=== PATIENT | female | born 1970 | race Caucasian/White ===

== ENCOUNTER 2017-12-16 08:09 | Emergency (ER) | payer OTHER, SELFPAY ==
[2017-12-16] MEDS ORDERED: Ibuprofen 800 MG TAB ONE (08:24)
[2017-12-16] MEDS ORDERED: Acetaminophen 500 MG TAB ONE (08:24)
== END 2017-12-16 09:28 | disposition home or self-care (01) ==
LOC: ERS 08:09
DX: H65.91 Unspecified nonsuppurative otitis media, right ear (principal); H65.92 Unspecified nonsuppurative otitis media, left ear; B34.9 Viral infection, unspecified; F32.9 Major depressive disorder, single episode, unspecified; F17.210 Nicotine dependence, cigarettes, uncomplicated
CPT/HCPCS: 99406

== ENCOUNTER 2018-12-07 13:48 | Emergency (ER) | payer MEDICAID, SELFPAY ==
[2018-12-07] MEDS ORDERED: Lidocaine 1% PF 5 ML VIAL ONE (14:18)
[2018-12-07] MEDS ORDERED: cefTRIAXone\\ROCEPHIN 250 MG VIAL ONE (14:18)
[2018-12-07] MEDS ORDERED: Acetaminophen 500 MG TAB ONE (14:18)
[2018-12-07 14:24] LABS: Bilirubin Negative (Negative); Blood, Urine Negative (Negative); Clarity CLEAR (Clear); Glucose, Urine (Dipstick) Negative (Negative); Leukocyte Small (Negative); Nitrite Negative (Negative); Protein, Urine (Dipstick) Negative (Neg-Trace); Specific Gravity, Urine 1.012 (1.002-1.036); pH, Urine 6.5 (5.0-9.0)
[2018-12-07 14:27] LABS: Bacteria/HPF None Seen HPF (None Seen); Hyaline Casts/LPF 0-3 HYALINE CAST LPF (0-3 Hyaline); Pathc Cast-AUWi Flag 0.14 (0-2.49); RBC/HPF 0-3 HPF (0-3)
[2018-12-07] MEDS ORDERED: Azithromycin 250 MG TAB ONE (14:50)
[2018-12-07 15:05] LABS: Pregnancy Test - Urine (BHCG) Negative (Negative); Pregu Control Background? CLEAR/WHITE (CLR/WHITE); Pregu Control Bar Appear? YES (CONTROL BAR); Specific Gravity 1.012 (1.002-1.036)
[2018-12-10 02:04] LABS: Chlamydia by PCR Not Detected (NotDetected); GC by PCR Not Detected (NotDetected)
== END 2018-12-07 15:31 | disposition home or self-care (01) ==
LOC: ERS 13:48
DX: N73.9 Female pelvic inflammatory disease, unspecified (principal); N76.0 Acute vaginitis; B00.9 Herpesviral infection, unspecified; F17.210 Nicotine dependence, cigarettes, uncomplicated
CPT/HCPCS: 81003; 81015; 81025; 87086; 87480; 87491; 87510; 87591; 87660; J0696; J2001

== ENCOUNTER 2018-12-07 20:05 | Inpatient (IN) | payer MEDICAID ==
[2018-12-07 20:47] LABS: #Lymphocytes 0.8 thou/uL (1.20-3.40); #Monocytes 0.3 thou/uL (0.11-0.59); #Neutrophils 6.6 thou/uL (1.40-6.50); %Basophils 0.1 % (0.0-1.0); %Eosinophils 0.2 % (0.0-10.0); %Monocytes 4.2 % (0.0-10.0); %Neutrophils 85.5 % (42.0-75.0); Hemoglobin 13.1 g/dL (12.0-16.0); Mean Corpuscular HGB CONC 33.8 g/dL (32.0-36.0); Mean Corpuscular Hemoglobin 32.8 pg (27.0-31.0); Mean Corpuscular Volume 97.1 fL (78.0-98.0); Mean Platelet Volume 7.7 fL (7.4-10.4); Platelet Count 335 thou/uL (130-400); RBC Distribution Width 11.2 % (11.5-14.5); White Blood Cell (WBC) Count 7.7 thou/uL (4.8-10.8)
[2018-12-07] MEDS ORDERED: cefTRIAXone\\ROCEPHIN 2 GM VIAL ONE (20:50)
[2018-12-07] MEDS ORDERED: Acetaminophen 500 MG TAB ONE (20:50)
[2018-12-07 21:07] LABS: ALT (SGPT) 60 U/L (8-55); AST (SGOT) 57 U/L (5-34); Alkaline Phosphatase 153 U/L (40-150); Anion Gap 15 mmol/L (10-20); BUN (Urea Nitrogen) 13 mg/dL (7.0-18.7); Bilirubin, Total 0.4 mg/dL (0.2-1.2); Calc. Creatinine Clearance 0 mL/min (70-130); Calcium 9.2 mg/dL (7.8-10.44); Carbon Dioxide 22 mmol/L (22-29); Chloride 104 mmol/L (98-107); Estimated GFR-MDRD 82; Globulin 2.5 g/dL (2.4-3.5); Glucose 125 mg/dL (70-105); Potassium 4.2 mmol/L (3.5-5.1); Protein, Total 6.5 g/dL (6.0-8.3); Sodium 137 mmol/L (136-145)
[2018-12-07] MEDS ORDERED: Morphine 4 MG/ML VIAL ONE (21:20)
--- NOTE | 2018-12-07 21:27 | CT ---
CT ABDOMEN AND PELVIS WITHOUT CONTRAST: HISTORY: Lower back pain. Bilateral CVA tenderness. FINDINGS: Absence of oral and IV contrast reduces the sensitivity of the exam, particularly for evaluation of s olid organs involved. The lung bases are clear. No free air or free fluid is seen in the abdomen or pelvis. No calcified gallstones are noted. There are vascular calcifications without evidence of aneurysmal dilatation of the abdominal aorta. A uterus is present. There are left-sided small parapelvic cysts. No calculi are seen in the kidneys, ureters, or urinary bladder. No hydroureteronephrosis is noted on either side. A normal appearing appendix is noted. There is a vertebral hemangioma at T11. IMPRESSION: No CT evidence of urinary tract calculi or obstruction. POS: [facility]
--- NOTE | 2018-12-07 21:59 | PDOC.EVN ---
Event Note - Event Note Event Note: OBGYN Attending oncall note ELEVATOR SERVICE TECHNICIAN HISTORY AND PHYSICAL ELEVATOR SERVICE TECHNICIAN Consult; Requested by Lary Morel (ED provider) Called by ED provider just now ([id number]) HPI: I just just called regarding Ms Julien, from the ED provider. This patient- a 48 yo , s/p BTL, with LMP 7mos ago (UCG negative) was seen earlier today in ED and given a DX of "PID" and cleared for outpatient management. I was not contacted at that time. She was released from the ED earlier but she returned with "fever at home" after she arrived at her residence. She returned to the ED with initial temp of 103 but now 99.0 after IVF hydration. The ED provider has DX'd BV on VP3 and suspected genital herpetic lesion on the left labia. Review of Systems: complete ROS completed and as per HPI Past surg HX: BTL; HX cryo and leep over 20 years ago OB HX: x 3 Allergies: none PMed: none Social: social drinker, smokes tobacco Vice President Of Procurement HX: LMP 7 mos ago, HX HSV with apparent recent outbreak (recurrent), Last sex without condom 2-3 weeks ago PHYSICAL: Last vitals: 99.0, pulse 96, 106/53 Patient seen by me at bedside NAD Abd soft, nt Labs: UA with likely contamination GC/CHL pending under earlier Jnumber: [id number] Influenza neg WBC normal at 7 CT of abd/pelvis without acute pathology Assessment and plan: FUO, heddle machine operator source not likely: I have reviewed the patient's first ED visit as well as this one. I was called for possible PID. However, PID less likely in non-menstruating perimenopausal patient. Patient also with BTL HX, making PID possible...but less probable. I would recommend admit for FUO by medicine. She received Rocephin and ZMax earlier. To cover heddle machine operator etiology, I would recommend Rocephin/doxy and flagyl for inpatient. I have ordered per the ED team: 1. HSV PCR of genital (left) lesion 2. GC/CHL from earlier visit to join to this visit 3. Requested heddle machine operator sono (to look for tubal inflammation/hydro and TOA (although CT was negative) and RUQ sono (due to LFTs) 4. Requested hepatitis panel duo to borderline LFTs 5. Urine culture 6. Consider HIV testing and RPR for screen 7. Vice President Of Procurement will be happy to follow I was present when the transabdomnal heddle machine operator sono was performed in the ED...small fundal fibroid noted, overies wnl, no evidence hydrosalpinx. Vaginal portion of sono pening. RUQ pending.
[2018-12-07 22:37] LABS: Amphetamine Not Detected (NotDetected); Barbiturates Screen Not Detected (NotDetected); Benzodiazepine Screen Not Detected (NotDetected); Cocaine Metabolite Screen Not Detected (NotDetected); Medtox Control Line Valid? VALID (VALID); Medtox Reader # READER 1; Methadone Not Detected (NotDetected); Methamphetamine Not Detected (NotDetected); Opiate Screen Not Detected (NotDetected); Oxycodone Screen Not Detected (NotDetected); Phencyclidine (PCP) Not Detected (NotDetected); THC/Cannabinoid Screen Not Detected (NotDetected); Tricyclic Screen Not Detected (NotDetected)
--- NOTE | 2018-12-07 22:50 | PDOC.EVN ---
Event Note - Event Note Event Note: Patient declines herpes swab...no PCR
[2018-12-07] MEDS ORDERED: Ondansetron ODT 4 MG TAB PO PRN (22:54)
[2018-12-07] MEDS ORDERED: Acetaminophen 325 MG TAB PO PRN (22:54)
--- NOTE | 2018-12-07 23:05 | ULT ---
TRANSABDOMINAL AND TRANSVAGINAL PELVIC ULTRASOUND WITH DOPPLER: HISTORY: Pelvic pain. Fever. TECHNIQUE: Cash-scale, color-flow, and spectral Doppler. FINDINGS: The uterus measures 10.8 x 4.5 x 5.8 cm with a probable fibroid of the fundus measuring 2.2 x 2.5 x 2 .7 cm. No endometrial fluid is seen. The endometrium measures 4 mm in thickness. The right ovary measures 1.6 x 1.1 x 2.5 cm, and the left ovary measures 2.3 x 1 x 1.6 cm. Flow is d emonstrated to both ovaries. No adnexal mass or free fluid in the cul-de-sac is seen. IMPRESSION: Probable uterine fibroid. POS: [facility]
[2018-12-07] MEDS: Doxycycline 100 MG CAP PO SCH (23:15)
--- NOTE | 2018-12-07 23:31 | ULT ---
RIGHT UPPER QUADRANT ULTRASOUND: HISTORY: Right flank pain and right upper quadrant pain. FINDINGS: There is a 1.8 cm hyperechoic focus in the right lobe of the liver, consistent with the hemangioma no elaine on the CT scan of 04/10/2016. No gallstones, gallbladder wall thickening, or pericholecystic flu id is seen. There is a questionable 5 mm polyp arising from the wall of the gallbladder. No gallbla dder wall thickening or pericholecystic fluid is seen. The common duct measures 3 mm in diameter. T he right kidney and the visualized portions of the pancreas are unremarkable. No free fluid is seen in the Weiss pouch. IMPRESSION: 1. Probable 5 mm gallbladder polyp. 2. Liver hemangioma. POS: [facility]
[2018-12-07 23:38] VITALS: BMI 28.0
[2018-12-07] MEDS: Sodium Chloride 0.9% 1,000 ML IV SCH (23:45)
[2018-12-08 00:04] LABS: HIV (1/2) Antibody/Antigen Non-Reactive (NonReactive); HIV 1/2 INDEX 0.12 S/CO (<1.00)
[2018-12-08 00:07] LABS: HBCM Index 0.05 S/CO (0-0.79); HBSAg Index 0.23 S/CO (0-0.99); Hep A IgM AB Non-Reactive (NonReactive); Hep A IgM S/CO 0.08 S/CO (0-0.79); Hep B Surf Ag Non-Reactive S/CO (NonReactive); Hep C IgG Ab Non-Reactive (NonReactive); Hep C Index 0.07 S/CO (0-0.79); Hepatitis B Core IgM Abs Non-Reactive (NonReactive)
[2018-12-08 00:21] LABS: Syphilis Antibody REACTIVE (Nonreactive)
[2018-12-08] MEDS ORDERED: Oseltamivir 6 MG/ML ORAL SUSP PO SCH (01:00)
--- NOTE | 2018-12-08 01:30 | PDOC.EVN ---
Event Note - Event Note Event Note: Lab check: Syphilis serology pos at RPR 1:8 Would recommend ID consult unless HX past syphilis treatment (patient did not state that to me during her H&P process) which would make her serofast.
[2018-12-08] MEDS: metroNIDAZOLE 500 MG in Premix Bag 1 BAG IVPB SCH ×2 (01:42→08:36)
[2018-12-08] MEDS ORDERED: Sodium Chloride 0.9% 1,000 ML IV SCH (02:15)
--- NOTE | 2018-12-08 02:22 | PDOC.EVN ---
Event Note - Event Note Event Note: Patient interviewed and denies past HX syphilis DX or RX. This is likely new DX. I have discussed with primary MD. Needs PCN and we will contact ID
[2018-12-08] MEDS: Sodium Chloride 0.9% 1,000 ML IV SCH (03:48)
[2018-12-08 05:27] LABS: #Lymphocytes 1.7 thou/uL (1.20-3.40); #Monocytes 0.9 thou/uL (0.11-0.59); #Neutrophils 5.1 thou/uL (1.40-6.50); %Basophils 0.3 % (0.0-1.0); %Eosinophils 0.1 % (0.0-10.0); %Lymphocytes 22.2 % (21.0-51.0); %Monocytes 11.4 % (0.0-10.0); %Neutrophils 66.1 % (42.0-75.0); Hemoglobin 10.3 g/dL (12.0-16.0); Mean Corpuscular Hemoglobin 31.8 pg (27.0-31.0); Mean Corpuscular Volume 99.3 fL (78.0-98.0); Platelet Count 295 thou/uL (130-400); RBC Distribution Width 11.1 % (11.5-14.5); Red Blood Cell (RBC) Count 3.24 mill/uL (4.20-5.40); White Blood Cell (WBC) Count 7.7 thou/uL (4.8-10.8)
[2018-12-08 05:43] LABS: Anion Gap 10 mmol/L (10-20); BUN (Urea Nitrogen) 10 mg/dL (7.0-18.7); Calc. Creatinine Clearance 120 mL/min (70-130); Calcium 7.5 mg/dL (7.8-10.44); Carbon Dioxide 19 mmol/L (22-29); Chloride 116 mmol/L (98-107); Estimated GFR-MDRD Greater than 90; Glucose 139 mg/dL (70-105); Potassium 3.9 mmol/L (3.5-5.1); Sodium 141 mmol/L (136-145)
--- NOTE | 2018-12-08 07:06 | HP ---
PRIMARY CARE DOCTOR: The patient has no PCP. CODE STATUS: Full code. TIME OF EVALUATION: 11:25 p.m. CHIEF COMPLAINT: Lower back pain. HISTORY OF PRESENT ILLNESS: This is a 48-year-old female patient with past medical history of no significant medical problems, came to the hospital after having severe abdominal pain, radiated to the back with no clear triggers, no alleviating factors. The patient has been feeling febrile in the past few days. Today, she got the fever of 102, came to the hospital, was discharged with medication and returned back to the ER due to the high fever. Workup was done. We have been unable to identify one source. She has been started on antibiotics since. The patient also presented with hypotension that has been sustained in the 70s and 80s. The patient recovered with fluids. I will continue to monitor in ICU. REVIEW OF SYSTEMS: CONSTITUTIONAL: The patient has fever, chills, generalized weakness. RESPIRATORY: No cough, sputum production, or shortness of breath. CARDIOVASCULAR: No chest pain or palpitations. GASTROINTESTINAL: No nausea. No vomiting, diarrhea, or abdominal pain. DISTRIBUTION AGENT: No dizziness, headache, or feeling lightheaded. GENITOURINARY: No burning on urination. EXTREMITIES: No leg swelling. All other systems were reviewed and negative, except for the findings mentioned above. PAST MEDICAL HISTORY: Negative. PAST SURGICAL HISTORY: The patient has tubal ligation, LEEP procedure, precancerous cells removed from cervix. PSYCHIATRIC HISTORY: Includes depression. SOCIAL HISTORY: The patient smokes half a pack per day. KNOWN ALLERGIES: No known drug allergies reported. MEDICATIONS: Citalopram and Wellbutrin. PHYSICAL EXAMINATION: VITAL SIGNS: On presentation, 149/75 with heart rate 116; blood pressure drops to the 70s, after admission recovering with fluids; temperature 103.1, heart rate 116. GENERAL APPEARANCE: The patient looks ill. She is alert, oriented, not in acute distress. HEENT: Eyes, normal conjunctivae. Moist oral mucosa. Anicteric. No JVD. RESPIRATORY: Bilateral air entry. No rales. No wheezes. Symmetric expansion. CARDIOVASCULAR: Normal rate, regular rhythm. No murmurs. No gallop. No edema. ABDOMEN: Soft. Abdomen is tender specially in the right upper quadrant, lower abdominal area. MUSCULOSKELETAL: Baseline range of motion. No sternal tenderness. SKIN: Warm, intact. No pallor. No rash. No redness. VASCULAR: Peripheral pulses are present. Capillary refill seems to be intact. NEURO: No evidence of any new focal weakness. Baseline speech. Cranial nerves seem to be intact. PSYCH: She seems to be in good mood. No anxiety. Optimal judgment. DIAGNOSTIC DATA: EKG was reviewed. The patient has normal sinus rhythm with a rate of 92 with MO 136, QRS 94, QT corrected 477. X-ray was reviewed by myself. No acute cardiopulmonary abnormalities were seen. Abdomen and pelvis CT was done. No CTA evidence of urinary tract calculi or obstruction. Pelvic transvaginal ultrasound probably uterine fibroid. Abdominal ultrasound, liver hemangioma, probably 5 mm gallbladder polyp. No evidence of any acute pathology. CBD is normal. LABORATORY DATA: Labs were reviewed. The patient has white count 7.7, hemoglobin 13.1, MCV 97, platelet count 335. Chemistry; sodium 137, potassium 4.2, chloride 104, carbon dioxide 22, anion gap 15, BUN 13, creatinine 0.7, GFR 82, glucose 125, lactic acid 1.4, calcium 9.2, total bilirubin was 0.4, AST 57, ALT 60, alkaline phosphatase 153. Serum total protein 6.5, albumin 4.0, globulin 2.5, albumin to globulin ratio 1.6. Lipase 21. Urine toxicology was negative. Syphilis was positive. Both IgG, IgM antibodies and RPR. ASSESSMENT AND PLAN: The patient will be placed in the hospital with following medical problems. 1. Systemic inflammatory response syndrome, possible sepsis. The patient presented with persistent hypotension with systolic blood pressure in the 70s, even after receiving 3 L bolus completed with 5 L. We do not have a source yet for the symptoms, the patient has been started on broad-spectrum antibiotics being in ICU. If the blood pressure continues to deteriorate, we will place the patient on vasopressors. We will consult Pulmonary for assistance with the patient. 2. Severe abdominal pain. Continue opioid medication for optimal control. 3. Positive serology for syphilis. I will consult Dr. Mondragon for any further recommendation with the patient. The patient denies any previous history of syphilis on any other medical problems. 4. Hepatic hemangioma. This has all been present in previous lap for the past 2 years. 5. Mildly elevated liver function tests, unclear etiology. No CBD pathology was found or any other hepatic etiology, except for the gallbladder polyp. 6. Hyperglycemia of 125. The patient has no history of diabetes, could be secondary to acute physical distress or glucose intolerance. 7. Deep venous thrombosis prophylaxis. Risk assessment high, risk due to hypotension on presentation. Job ID: [id number]
[2018-12-08] MEDS ORDERED: Sodium Chloride 0.65% Nasal 44 ML BOT EA NARE PRN (07:55)
[2018-12-08] MEDS ORDERED: Cepastat Lozenges 1 LOZ PO PRN (07:55)
[2018-12-08] MEDS ORDERED: Loratadine 10 MG TAB PO PRN (07:55)
[2018-12-08] MEDS ORDERED: Senokot S 8.6-50 MG TAB PO PRN (07:55)
[2018-12-08] MEDS ORDERED: Loperamide HCl 2 MG CAP PO PRN (07:55)
[2018-12-08] MEDS ORDERED: hydrALAZINE 20 MG/ML VIAL SLOW IVP PRN (07:55)
[2018-12-08] MEDS ORDERED: Artificial Tears 18 DROP/0.9 ML EA EYE PRN (07:55)
[2018-12-08] MEDS ORDERED: Bisacodyl 10 MG SUPP PR PRN (07:55)
[2018-12-08] MEDS ORDERED: Eucerin (Mineral Oil/Petrolatum,White) 30 gm Jar TOP PRN (07:55)
[2018-12-08] MEDS ORDERED: Diabetic Tussin 200 MG/10 ML UDCUP PO PRN (07:55)
[2018-12-08] MEDS ORDERED: Ondansetron PF 4 MG/2 ML Vial IVP PRN (07:55)
[2018-12-08] MEDS ORDERED: Zolpidem Tartrate 5 MG TAB PO PRN (07:55)
[2018-12-08] MEDS: Citalopram 20 MG TAB PO SCH (08:34)
[2018-12-08] MEDS: Enoxaparin Sodium 40 MG/0.4 ML SYRINGE SC SCH (08:36)
--- NOTE | 2018-12-08 08:48 | RAD ---
SINGLE VIEW CHEST: Date: 12/07/18 COMPARISON: 04/10/16. HISTORY: Pneumonia. FINDINGS: Single view of the chest shows a normal sized cardiomediastinal silhouette. There is no evidence of c onsolidation, mass, or pleural effusion. The bones are unremarkable. IMPRESSION: No evidence of acute cardiopulmonary disease. POS: [facility]
--- NOTE | 2018-12-08 09:13 | CON ---
DATE OF CONSULTATION: 12/08/2018 REASON FOR CONSULTATION: Low blood pressure. HISTORY OF PRESENT ILLNESS: The patient is a 48-year-old female, who presented to the emergency room for the second time in 1 day yesterday with a fever up to 104. So far, the only identifiable source has been lymphadenopathy in the inguinal area. She has a positive RPR titer. She has been given antibiotics and fluids, and her blood pressure has now improved back to a systolic of 101 after being as low as systolic 70s last night. Aside from the fever, she states that she had 1 episode of diarrhea back on Saturday. PAST MEDICAL HISTORY: Essentially unremarkable. PAST SURGICAL HISTORY: Tubal ligation, LEEP procedure, and precancerous cells removed from the cervix. SOCIAL HISTORY: She smokes about 10 cigarettes per day. She occasionally uses marijuana gummy bears. She is a hairdresser. ALLERGIES: NONE. MEDICATIONS: Prior to admission, citalopram and Wellbutrin. REVIEW OF SYSTEMS: 12-point review of systems is otherwise negative. PHYSICAL EXAMINATION: VITAL SIGNS: Temperature 98.6, pulse 57, blood pressure 101/61, saturation 95%, respiratory rate 20. GENERAL: She is awake and alert and in no distress. HEENT: Pupils are reactive. Sclerae are anicteric. Oropharynx is clear. NECK: Without adenopathy or JVD. LUNGS: Clear to auscultation without wheezing or rhonchi. CARDIAC: S1 and S2, regular without audible murmur. ABDOMEN: Soft, nontender, and nondistended. EXTREMITIES: No clubbing, cyanosis, or edema. She has some tender lymph nodes in the left inguinal area. LABORATORY DATA: Sodium 141, potassium 3.9, chloride 116, CO2 of 19, BUN 10, creatinine 0.6, glucose 139. White blood cell count 7.7, hematocrit 32.1, platelet count 295. Tox screen was negative. Serology; RPR positive 1:8. Chest x-ray without mass, effusion, or infiltrate. ASSESSMENT: Transient hypotension-likely slightly volume depleted. She may or may not have pelvic inflammatory disease as a source. RECOMMENDATIONS: 1. Check cortisol to rule out adrenal insufficiency. 2. Her blood pressure is improved to the point where I feel she can be transferred out to the floor. 3. Further treatment of positive RPR per the primary and S[employer] teams. Job ID: [id number]
[2018-12-08 10:34] LABS: Bilirubin Negative (Negative); Blood, Urine Negative (Negative); Clarity CLEAR (Clear); Glucose, Urine (Dipstick) Negative (Negative); Leukocyte Trace (Negative); Nitrite Negative (Negative); Protein, Urine (Dipstick) Negative (Neg-Trace); Specific Gravity, Urine 1.015 (1.002-1.036)
[2018-12-08 10:36] LABS: Bacteria/HPF None Seen HPF (None Seen); Hyaline Casts/LPF 0-3 HYALINE CAST LPF (0-3 Hyaline); Pathc Cast-AUWi Flag 0.14 (0-2.49); RBC/HPF 0-3 HPF (0-3); Squamous Epithelial 0-3 HPF (0-3)
--- NOTE | 2018-12-08 12:12 | PDOC.PN ---
- Subjective Encounter Start Date: 12/08/18 Encounter Start Time: 09:00 -: old records requested/rev Patient seen and examined. No new complaints. No overnight events - Objective Resuscitation Status - Order Detail: 12/07/18 22:54 Resuscitation Status Routine Resuscitation Status: FULL: Full Resuscitation MAR Reviewed: Yes Vital Signs & Weight: Vital Signs (12 hours) Temp Pulse Resp BP BP BP Pulse Ox 12/08/18 11:00 98.1 F 12/08/18 08:00 96 12/08/18 07:00 98.1 F 12/08/18 04:00 94 L 12/08/18 03:00 98.6 F 12/08/18 00:35 93/60 12/08/18 00:32 98.9 F 82 20 82/40 L 96 12/08/18 00:25 86/47 L Weight Weight 157 lb 10.088 oz Most Recent Monitor Data Heart Rate from ECG 65 NIBP 90/52 NIBP BP-Mean 64 Respiration from ECG 18 SpO2 95 I&O: 12/07/18 12/08/18 12/09/18 06:59 06:59 06:59 Intake Total 4385 120 Output Total 700 1150 Balance 3685 -1030 Result Diagrams: 12/08/18 05:00 12/08/18 05:00 Radiology Reviewed by me: Yes EKG Reviewed by me: Yes Phys Exam - Physical Examination Constitutional: NAD HEENT: PERRLA, moist MMs, sclera anicteric Neck: no JVD, supple Respiratory: no wheezing, no rales, no rhonchi Cardiovascular: RRR, no significant murmur, no rub Gastrointestinal: soft, non-tender, no distention, positive bowel sounds Musculoskeletal: no edema, pulses present Neurological: non-focal, normal sensation, moves all 4 limbs Lymphatic: no nodes Psychiatric: normal affect, A&O x 3 Skin: no rash, normal turgor Dx/Plan (1) Hypotension Status: Acute (2) Sepsis Code(s): A41.9 - SEPSIS, UNSPECIFIED ORGANISM Status: Acute (3) Syphilis Code(s): A53.9 - SYPHILIS, UNSPECIFIED Status: Acute (4) Transaminitis Code(s): R74.0 - NONSPEC ELEV OF LEVELS OF TRANSAMNS & LACTIC ACID DEHYDRGNSE Status: Acute (5) Anemia Code(s): D64.9 - ANEMIA, UNSPECIFIED Status: Chronic (6) Anxiety and depression Code(s): F41.9 - ANXIETY DISORDER, UNSPECIFIED; F32.9 - MAJOR DEPRESSIVE DISORDER, SINGLE EPISODE, UNSPECIFIED Status: Chronic (7) Tobacco abuse Code(s): Z72.0 - TOBACCO USE Status: Chronic (8) Uterine fibroid Code(s): D25.9 - LEIOMYOMA OF UTERUS, UNSPECIFIED Status: Chronic - Plan cont current plan of care, plan discussed w/ family, continue antibiotics * will transfer to floor today * ID consulted * continue current empiric antibiotics * will repeat labs tomorrow * follow on culture * continue IVF. Review of Systems - Review of Systems ENT: negative: Ear Pain, Ear Discharge, Nose Pain, Nose Discharge, Nose Congestion, Mouth Pain, Mouth Swelling, Throat Pain, Throat Swelling, Other Respiratory: negative: Cough, Dry, Shortness of Breath, Hemoptysis, SOB with Excertion, Pleuritic Pain, Sputum, Wheezing Cardiovascular: negative: chest pain, palpitations, orthopnea, paroxysmal nocturnal dyspnea, edema, light headedness, other Gastrointestinal: negative: Nausea, Vomiting, Abdominal Pain, Diarrhea, Constipation, Melena, Hematochezia, Other Genitourinary: negative: Dysuria, Frequency, Incontinence, Hematuria, Retention , Other Musculoskeletal: negative: Neck Pain, Shoulder Pain, Arm Pain, Back Pain, Hand Pain, Leg Pain, Foot Pain, Other - Medications/Allergies Allergies/Adverse Reactions: Allergies Allergy/AdvReac Type Severity Reaction Status Date / Time No Known Allergies Allergy Verified 12/08/18 00:33 Medications: Current Medications Acetaminophen (Tylenol) 650 mg PO Q4H PRN PRN Reason: Headache/Fever/Mild Pain (1-3) Artificial Tears (Tears Naturale) 2 drop EA EYE PRN PRN PRN Reason: Dry Eyes Bisacodyl (Dulcolax) 10 mg DE DAILYPRN PRN PRN Reason: Constipation Citalopram Hydrobromide (Celexa) 20 mg PO DAILY [facility] Last Admin: 12/08/18 08:34 Dose: 20 mg Doxycycline Hyclate (Vibramycin) 100 mg PO NOW [facility] Stop: 12/11/18 02:00 Last Admin: 12/07/18 23:15 Dose: Not Given Enoxaparin Sodium (Lovenox) 40 mg SC 0900 [facility] Last Admin: 12/08/18 08:36 Dose: 40 mg Guaifenesin (Robitussin Sf) 200 mg PO Q4H PRN PRN Reason: Cough Hydralazine HCl (Apresoline) 10 mg SLOW IVP Q4H PRN PRN Reason: SBP > 180 and HR < 70 Ceftriaxone Sodium 1 gm/ (Sodium Chloride) 100 mls @ 200 mls/hr IVPB Q24HR [facility] Metronidazole 500 mg/ Device 100 mls @ 100 mls/hr IVPB [id number] [facility] Last Admin: 12/08/18 08:36 Dose: 100 mls Sodium Chloride (Normal Saline 0.9%) 1,000 mls @ 125 mls/hr IV .Q8H [facility] Last Admin: 12/08/18 03:48 Dose: 1,000 mls Loperamide HCl (Imodium) 2 mg PO PRN PRN PRN Reason: Diarrhea/Loose Stools Loratadine (Claritin) 10 mg PO DAILYPRN PRN PRN Reason: Sinus Symptoms Mineral Oil/White Petrolatum (Eucerin Cream) 0 gm TOP BIDPRN PRN PRN Reason: Dry Skin Ondansetron HCl (Zofran Odt) 4 mg PO Q6H PRN PRN Reason: Nausea/Vomiting Ondansetron HCl (Zofran) 4 mg IVP Q6H PRN PRN Reason: Nausea/Vomiting Senna/Docusate Sodium (Senokot S) 2 tab PO BID PRN PRN Reason: Constipation Sodium Chloride ([place] 0.65%) 0 ml EA NARE QIDPRN PRN PRN Reason: Nasal Congestion Sodium Chloride (Flush - Normal Saline) 10 ml IVF Q12HR [facility] Last Admin: 12/08/18 10:03 Dose: Not Given Sodium Chloride (Flush - Normal Saline) 10 ml IVF PRN PRN PRN Reason: Saline Flush Throat Lozenges (Cepastat Lozenges) 1 grayson PO Q2H PRN PRN Reason: Sore Throat Zolpidem Tartrate (Ambien) 5 mg PO HSPRN PRN PRN Reason: Insomnia
[2018-12-08] MEDS ORDERED: Bicillin LA 2.4 MILL.UNITS/4 ML SYRINGE IM SCH (13:45)
--- NOTE | 2018-12-08 15:14 | CON ---
DATE OF CONSULTATION: 12/08/2018 REASON FOR CONSULTATION: Positive syphilis test. HISTORY OF PRESENT ILLNESS: A 48-year-old who has no significant past medical history except for an abnormal Pap smear in the past, which was managed with a LEEP procedure or similar intervention, in her usual state of health until maybe a week and half or 2 weeks before admission when she developed recurring fever episodes. She was evaluated in the emergency room. She had some associated moderate abdominal tenderness with back radiation and some headaches. She was given symptomatic medications and discharged, and then returned with temperature elevation again. At this time, she was a bit hypotensive, given IV fluids, and admitted to the ICU. The initial BP 149/75 and heart rate 116. The BP would drop to 70 systolic intermittently with quick response to fluids. Temperature is 103. She appeared unwell, was alert and oriented. The heart exam was not remarkable. Abdomen is soft. Skin examination was normal. She has no focal abnormalities on the neurological examination. She had a CT abdomen and pelvis, which was done without contrast. This was basically a CT stone protocol, I believe, at that time because of flank pain, that was concern with that possibility. Pelvic ultrasound showed uterine fibroid. Abdominal ultrasound not particularly remarkable. The white cell count 7.7, hemoglobin 13, and platelets 335. Sodium 137, potassium 4.2, creatinine 0.7, and glucose 125. Lactic acid 1.4. Bilirubin 0.4. Lipase was normal. Urinalysis was essentially normal. Syphilis serology was done, which was positive. RPR was 128. She has been treated with vancomycin, Rocephin, and some symptomatic medications. Still having some headaches, but not much. No visual symptoms, sore throat, odynophagia, or dysphagia. No toothache. No back pain. The pain in the abdominal area has resolved. No cough or sputum production. No chest pain. No genitourinary symptoms. No joint symptoms. No skin disorder. No neurological symptoms. MEDICAL HISTORY: Abnormal Pap smear in the past, treated with cervical ablation procedure. ALLERGY HISTORY: Negative, no known drug allergies. FAMILY HISTORY: Noncontributory. SOCIAL HISTORY: She works as a power hair clipper in town. She has 3 children. She is , has had new sexual partners within the past 2 years. She was kind of emotional about it and I could not get more specific details. CURRENT MEDICATIONS: Include; 1. Doxycycline. 2. Ceftriaxone. 3. Metronidazole. PHYSICAL EXAMINATION: VITAL SIGNS: T-max 98.6, blood pressure 116/77, heart rate 64, and O2 saturation 97 on room air. SKIN: Normal. Peripheral IV access. GENERAL: She is voiding in the bedside commode. I's and O's are positive yesterday and are negative thus far. HEENT: No lymphadenopathy. Ocular movements conjugate. Oral cavity normal. Teeth are in good shape. NECK: Supple. No jugular vein distention. LUNGS: Symmetric and clear breath sounds. HEART: S1 and S2. Regular rate. No S3 or S4. ABDOMEN: Soft, not distended or tender. No flank tenderness. MUSCULOSKELETAL: No joint inflammatory activity. NEUROLOGIC: Nonfocal. LABORATORY DATA: White cell count 7.7, hemoglobin 13 and 10.3, MCV 99, platelets 295, 85% neutrophils and now 66. Sodium 137 and creatinine 0.75. AST 57, ALT 60, and alkaline phosphatase 153. Calcium 7.5. Cortisol 8.9. Lipase now 41. Urinalysis with 4 to 6 wbc's. HIV serology negative. Hepatitis C and B serology negative. Syphilis serology reported above. Toxic screen negative. Two sets of blood cultures thus far no growth. Influenza negative. IMAGING STUDIES: As discussed above. Chest x-ray with no evidence of infiltrates. ASSESSMENT: 1. Febrile illness, nonspecific, with some abdominal complaints, which have improved. 2. Positive syphilis test of unknown age. DISCUSSION: Most likely scenario is either a transient viral illness or syphilitic hepatitis with secondary phenomena. The RPR titers are kind of low, she may be seroconverting at this time or this may be a more lengthier course of a late latent syphilis. Tertiary syphilis is less likely. I do not think she needs a CSF evaluation at this point in time. We will discontinue other antimicrobials except for doxycycline. Check chlamydia in urine and GC as well, DNA PCR. Bicillin LA 2.4 million units IM x1 and then weekly x3 doses. Follow up in the clinic to monitor titer response to therapy. Other possibilities would be that this is a finding of the syphilis status is serendipitous and that there is another reason for the patient's symptoms, such as bacteremia or an autoimmune process that appears to be less likely. May have to revisit this depending upon clinical course. Job ID: [id number]
[2018-12-08] MEDS ORDERED: cefTRIAXone\\ROCEPHIN 1 GM in Sodium Chloride 0.9% 100 ML IVPB SCH (20:00)
[2018-12-09] MEDS: Doxycycline 100 MG CAP PO SCH (02:35)
--- NOTE | 2018-12-09 06:54 | PDOC.EVN ---
Event Note - Event Note Event Note: Alanna consult noted. Agree with differential. No evidence that gynecologic pelvic infection is etiology of fever. Will follow at distance unless further eval requested.
[2018-12-09 06:59] LABS: #Basophils 0.1 thou/uL (0.0-0.2); #Eosinphils 0.1 thou/uL (0.0-0.7); #Lymphocytes 3.1 thou/uL (1.20-3.40); #Monocytes 0.6 thou/uL (0.11-0.59); %Basophils 0.8 % (0.0-1.0); %Eosinophils 1.4 % (0.0-10.0); %Monocytes 9.3 % (0.0-10.0); %Neutrophils 43.6 % (42.0-75.0); Hemoglobin 11.5 g/dL (12.0-16.0); Mean Corpuscular HGB CONC 31.1 g/dL (32.0-36.0); Mean Corpuscular Hemoglobin 30.9 pg (27.0-31.0); Mean Corpuscular Volume 99.3 fL (78.0-98.0); Mean Platelet Volume 7.8 fL (7.4-10.4); Platelet Count 376 thou/uL (130-400); RBC Distribution Width 11.3 % (11.5-14.5); Red Blood Cell (RBC) Count 3.73 mill/uL (4.20-5.40); White Blood Cell (WBC) Count 6.8 thou/uL (4.8-10.8)
[2018-12-09 07:21] LABS: ALT (SGPT) 64 U/L (8-55); AST (SGOT) 45 U/L (5-34); Albumin 3.1 g/dL (3.5-5.0); Alkaline Phosphatase 109 U/L (40-150); Anion Gap 12 mmol/L (10-20); BUN (Urea Nitrogen) 11 mg/dL (7.0-18.7); Bilirubin, Total 0.2 mg/dL (0.2-1.2); Calc. Creatinine Clearance 116 mL/min (70-130); Calcium 8.4 mg/dL (7.8-10.44); Carbon Dioxide 20 mmol/L (22-29); Chloride 111 mmol/L (98-107); Estimated GFR-MDRD Greater than 90; Globulin 2.1 g/dL (2.4-3.5); Glucose 104 mg/dL (70-105); Potassium 4.5 mmol/L (3.5-5.1); Protein, Total 5.2 g/dL (6.0-8.3); Sodium 138 mmol/L (136-145)
[2018-12-09] MEDS: Citalopram 20 MG TAB PO SCH (08:16)
[2018-12-09] MEDS: Enoxaparin Sodium 40 MG/0.4 ML SYRINGE SC SCH (08:17)
--- NOTE | 2018-12-09 11:37 | DIS ---
DATE OF ADMISSION: 12/07/2018 DATE OF DISCHARGE: 12/09/2018 PRIMARY CARE PHYSICIAN: [facility] Call admission. DISCHARGE DISPOSITION: Home. PRIMARY DISCHARGE DIAGNOSES: 1. Syphilis of unknown duration. 2. Sepsis, resolved. SECONDARY DISCHARGE DIAGNOSES: Anxiety and depression. PRIMARY PROCEDURE/OPERATION: None. RADIOLOGICAL INVESTIGATION: Abdomen and pelvis CT scan unremarkable. Pelvis ultrasound showed uterine fibroid. Abdominal ultrasound was unremarkable. Chest x-ray was normal. SIGNIFICANT LABORATORY DATA: WBC 6.8, hemoglobin 11.5, platelet 376. Sodium 138, potassium 4.5, BUN 11, creatinine 0.66. AST 45, ALT 64, alkaline phosphatase 109, albumin 3.1. Urine drug screen negative. Urinalysis unremarkable. Syphilis RPR titer positive. IgM and IgG antibody positive. Hepatitis and HIV negative. DISCHARGE MEDICATIONS: The patient will get Bicillin L-A 2.4 million IM every week for three doses. The patient will get this injection either at primary care physician office or Dr. Mondragon' office. The patient will continue her Celexa 20 mg p.o. daily. CONTRAINDICATION: None. CODE STATUS: Full code. INPATIENT PECAN PICKER: Dr. Mondragon was following while in hospital. Dr. Rahman was following while in hospital. Dr. Jame Chapa, OB-IT SECURITY ENGINEER was following while in hospital. TEST RESULTS PENDING ON DISCHARGE: None. ALLERGIES: NO KNOWN DRUG ALLERGY. DISCHARGE PLAN: Posthospital, the patient was instructed to follow up with OB-IT SECURITY ENGINEER doctor for pelvic examination as well as routine Pap smear, and the patient will follow up with primary care physician as well as Dr. Mondragon for continuity of care for treatment. HOSPITAL COURSE: A 48-year-old female, who was admitted by Dr. Santiago. Please see his H and P for further details. The patient was having abdominal pain. She was found with abnormal LFT. CT abdomen and pelvis did not show any significant process, but ultrasound of pelvis showed uterine fibroid. She had syphilis titer abnormal and that is why we suspected underlying syphilis problem. Her LFT was also abnormal and that is why we did abdominal ultrasound which was unremarkable and her physical examination was not consistent with local gallbladder pathology. The patient was treated with Benzathine penicillin LA intramuscularly while in hospital and she will get another three doses every week as per Dr. Mondragon' recommendation to treat her syphilis. The patient will make appointment with primary care physician for those. Overall, the patient is doing very well. OB-IT SECURITY ENGINEER doctor also following while in hospital. She will need outpatient followup with them as well. The patient is seen and examined at bedside today. REVIEW OF SYSTEMS: All review of systems reviewed with her and negative. PHYSICAL EXAMINATION: VITAL SIGNS: Currently, temperature 97.8, pulse 68, respiratory rate 20, saturation 95% on room air, blood pressure 117/68, weight 157 pounds. GENERAL: The patient is currently alert and awake. No obvious acute distress. HEENT: Head; normocephalic, atraumatic. Eyes; pupils round, reactive to light. Extraocular muscle intact. ENT; oropharynx within normal limits. Moist mucous membranes. No oral lesion. No pharyngeal erythema. No exudate. NECK: Supple. No JVD. LUNGS: Clear without any rhonchi or rales. CARDIAC: S1 and S2, regular without any murmur. ABDOMEN: Soft and benign. EXTREMITIES: No edema. NEUROLOGIC: Nonfocal examination. Overall, the patient is medically stable for discharge today. Job ID: [id number]
[2018-12-09 11:44] VITALS: BP 105/63; TEMP 98
[2018-12-10 02:08] LABS: CT by PCR-Urine Not Detected (NotDetected)
[2018-12-10 13:15] LABS: HIV-1 Quantitative, RNA PCR <20 copies/mL (.)
== END 2018-12-09 13:34 | disposition home or self-care (01) | DRG 872 ==
LOC: ERS 20:05 → T4-B 22:18 → OBSVTOIN 22:18 → CCU 12-08 02:42 → T4-B 12-08 16:24
PROVIDERS: ADMIT Hospitalist; ATTEND Hospitalist
DX: A41.9 Sepsis, unspecified organism (principal); A53.9 Syphilis, unspecified; D18.03 Hemangioma of intra-abdominal structures; R73.9 Hyperglycemia, unspecified; R74.0 Nonspecific elevation of levels of transaminase and lactic acid dehydrogenase [LDH]; D64.9 Anemia, unspecified; F41.8 Other specified anxiety disorders; F17.210 Nicotine dependence, cigarettes, uncomplicated; D25.9 Leiomyoma of uterus, unspecified; Z98.51 Tubal ligation status
CPT/HCPCS: 36415; 71045; 74176; 76705; 76856; 80048; 80053; 80074; 80306; 81003; 81015; 81025; 82533; 83605; 83690; 85025; 86593; 86780; 87040; 87086; 87149; 87389; 87480; 87491; 87510; 87536; 87591; 87660; 87804; 93005; 96361; 96365; 96366; 96368; 96372; 96375; J0561; J0696; J1650; J2001; J2270; J3370

== ENCOUNTER 2019-01-02 21:04 | Emergency (ER) | payer OTHER ==
[2019-01-02] MEDS ORDERED: Ibuprofen 800 MG TAB ONE (21:15)
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
== END 2019-01-02 22:20 | disposition home or self-care (01) ==
LOC: ERS 21:04
DX: S20.212A Contusion of left front wall of thorax, initial encounter (principal); F32.9 Major depressive disorder, single episode, unspecified; F17.210 Nicotine dependence, cigarettes, uncomplicated; Z79.899 Other long term (current) drug therapy; V40.5XXA Car driver injured in collision with pedestrian or animal in traffic accident, initial encounter
CPT/HCPCS: 71046

== ENCOUNTER 2020-12-17 13:18 | Emergency (ER) | payer MEDICAID ==
[~2020-12-17 13:18] MED LIST: Iopamidol-370 76% 500 ML 1 ML ONE
--- NOTE | 2020-12-17 15:38 | RAD ---
EXAM: Portable chest PROVIDED CLINICAL HISTORY: Chest pain COMPARISON: 12/07/2018 FINDINGS: Cardiac and mediastinal silhouette is within normal limits. No focal consolidation, pleural fluid or pneumothorax evident. IMPRESSION: No evidence for an acute cardiopulmonary process.
[2020-12-17 15:49] LABS: #Eosinphils 0.1 thou/uL (0.0-0.7); #Lymphocytes 3.1 thou/uL (1.20-3.40); #Monocytes 0.5 thou/uL (0.11-0.59); #Neutrophils 3.8 thou/uL (1.40-6.50); %Basophils 0.3 % (0.0-1.0); %Eosinophils 1.6 % (0.0-10.0); %Lymphocytes 41.1 % (21.0-51.0); %Monocytes 6.6 % (0.0-10.0); %Neutrophils 50.5 % (42.0-75.0); Hemoglobin 14.1 g/dL (12.0-16.0); Mean Corpuscular HGB CONC 32.7 g/dL (32.0-36.0); Mean Corpuscular Hemoglobin 31.9 pg (27.0-31.0); Mean Corpuscular Volume 97.6 fL (78.0-98.0); Mean Platelet Volume 8.7 fL (7.4-10.4); Platelet Count 252 thou/uL (130-400); RBC Distribution Width 11.4 % (11.5-14.5); Red Blood Cell (RBC) Count 4.42 mill/uL (4.20-5.40); White Blood Cell (WBC) Count 7.5 thou/uL (4.8-10.8)
[2020-12-17 16:04] LABS: ALT (SGPT) 22 U/L (8-55); AST (SGOT) 18 U/L (5-34); Albumin 4.1 g/dL (3.5-5.0); Alkaline Phosphatase 92 U/L (40-110); Anion Gap 15 mmol/L (10-20); BUN (Urea Nitrogen) 17 mg/dL (9.8-20.1); Bilirubin, Total 0.5 mg/dL (0.2-1.2); Calc. Creatinine Clearance 0 mL/min (70-130); Calcium 9.1 mg/dL (7.8-10.44); Carbon Dioxide 25 mmol/L (22-29); Chloride 105 mmol/L (98-107); Globulin 2.1 g/dL (2.4-3.5); Glucose 92 mg/dL (70-105); Potassium 4.2 mmol/L (3.5-5.1); Protein, Total 6.2 g/dL (6.0-8.3); Sodium 141 mmol/L (136-145)
[2020-12-17] MEDS ORDERED: Fentanyl 100 MCG/2 ML VIAL ONE (17:21)
[2020-12-17] MEDS ORDERED: Aspirin Chewable 81 MG TAB ONE (17:21)
--- NOTE | 2020-12-17 18:12 | CT ---
Exam: CT angiogram of the chest HISTORY: Right arm numbness and chest pain. COMPARISON: None TECHNIQUE: CT angiogram of the chest is performed in the axial plane. Three-dimensional reformatted i mages are submitted for interpretation FINDINGS: Mediastinum: No mass, lymphadenopathy or hematoma. Heart: Normal size. No significant pericardial fluid. Aorta: No aneurysm or dissection Upper solid abdominal viscera: No abnormality enhancement. Trachea and central bronchi: Patent Pleural spaces: No effusion Lung parenchyma: No masses or consolidation. Right lower lobe atelectasis. Pneumothorax: None Osseous structures: There are no lytic or blastic lesions in the osseous structures. Incidental heman gioma at the T11 level. Pulmonary arteries: Adequate contrast opacification pulmonary arterial system to the level of segment al arteries. No filling defect to suggest pulmonary embolism IMPRESSION: 1. No evidence of pulmonary artery embolism to the level of the segmental arteries.
== END 2020-12-17 19:55 | disposition home or self-care (01) ==
LOC: ERS 13:18
DX: R07.89 Other chest pain (principal); M19.90 Unspecified osteoarthritis, unspecified site; F17.210 Nicotine dependence, cigarettes, uncomplicated
CPT/HCPCS: 36415; 71045; 71275; 80053; 84484; 85025; 85379; 93005; 96374; J3010; Q9967

== ENCOUNTER 2021-07-12 15:32 | Outpatient (CLI) | payer OTHER | END 2021-07-12 15:33 | disposition home or self-care (01) | LOC: BICRAD 15:32 | PROVIDERS: ATTEND Specialist | DX: M54.2 Cervicalgia (principal); M54.6 Pain in thoracic spine; M47.812 Spondylosis without myelopathy or radiculopathy, cervical region | CPT/HCPCS: 72040; 72072 ==

== ENCOUNTER 2021-09-28 10:51 | Outpatient (CLI) | payer OTHER | END 2021-09-28 10:52 | disposition home or self-care (01) | LOC: TBSIIMAG 10:51 | PROVIDERS: ATTEND Neurological Surgery | DX: M47.22 Other spondylosis with radiculopathy, cervical region (principal); M50.122 Cervical disc disorder at C5-C6 level with radiculopathy | CPT/HCPCS: 72050; 72141 ==

== ENCOUNTER 2022-04-12 17:13 | Emergency (ER) | payer SELFPAY | END 2022-04-12 21:35 | disposition home or self-care (01) | LOC: ERS 17:13 | DX: U07.1 COVID-19 (principal); J20.8 Acute bronchitis due to other specified organisms; M19.90 Unspecified osteoarthritis, unspecified site; F17.210 Nicotine dependence, cigarettes, uncomplicated | CPT/HCPCS: 36415; 71045; 85379; U0003; U0005 ==

== ENCOUNTER 2023-08-16 01:53 | Emergency (ER) | payer BC ==
[2023-08-16] MEDS ORDERED: Acetaminophen 500 MG TAB ONE (04:39)
[2023-08-16] MEDS ORDERED: Ketorolac Tromethamine 30 MG/ML VIAL ONE (04:39)
== END 2023-08-16 06:18 | disposition home or self-care (01) ==
LOC: ERS 01:53
DX: R07.81 Pleurodynia (principal); F17.210 Nicotine dependence, cigarettes, uncomplicated
CPT/HCPCS: 93005; 96372; J1885

== ENCOUNTER 2024-01-16 15:18 | Outpatient (CLI) | payer OTHER ==
[~2024-01-16 15:18] MED LIST changes: +Iopamidol 370 76% 100 ML VIAL ONE; -Iopamidol-370 76% 500 ML 1 ML ONE
== END 2024-01-16 15:19 | disposition home or self-care (01) ==
LOC: CT 15:18
PROVIDERS: ATTEND Specialist
DX: C34.90 Malignant neoplasm of unspecified part of unspecified bronchus or lung (principal); H70.90 Unspecified mastoiditis, unspecified ear; R91.1 Solitary pulmonary nodule
CPT/HCPCS: 71270; Q9967

== ENCOUNTER 2024-04-14 14:50 | Emergency (ER) | payer OTHER ==
[2024-04-14 16:49] LABS: #Basophils Less than 0.03 10x3/uL (0.0-0.2); %Basophils 0.3 % (0.0-1.0); %Eosinophils 2.8 % (0.0-10.0); %Lymphocytes 41.6 % (21.0-51.0); %Monocytes 6.6 % (0.0-10.0); %Neutrophils 48.3 % (42.0-75.0); Hemoglobin 14.5 g/dL (12.0-16.0); Mean Corpuscular Hemoglobin 31.3 pg (27.0-31.0); Mean Platelet Volume 9.9 fL (7.4-10.4); Platelet Count 296 10x3/uL (130-400); RBC Distribution Width 12.2 % (11.5-14.5); Red Blood Cell (RBC) Count 4.63 mill/uL (4.20-5.40)
[2024-04-14 17:04] LABS: ALT (SGPT) 16 U/L (8-55); AST (SGOT) 14 U/L (5-34); Albumin 3.7 g/dL (3.5-5.0); Alkaline Phosphatase 76 U/L (40-110); Anion Gap 13 mmol/L (10-20); BUN (Urea Nitrogen) 11 mg/dL (9.8-20.1); Bilirubin, Total 0.3 mg/dL (0.2-1.2); Calc. Creatinine Clearance 0 mL/min (70-130); Carbon Dioxide 25 mmol/L (22-29); Chloride 107 mmol/L (98-107); Estimated GFR 95; Globulin 2.6 g/dL (2.4-3.5); Glucose 112 mg/dL (70-105); Lipase 17 U/L (8-78); Potassium 4.3 mmol/L (3.5-5.1); Protein, Total 6.3 g/dL (6.0-8.3); Sodium 141 mmol/L (136-145)
== END 2024-04-14 19:43 | disposition home or self-care (01) ==
LOC: ERS 14:50
DX: H92.02 Otalgia, left ear (principal); R53.83 Other fatigue
CPT/HCPCS: 36415; 80053; 83690; 84443; 85025; 99283

== ENCOUNTER 2024-10-21 14:06 | Emergency (ER) | payer OTHER ==
[2024-10-21] MEDS ORDERED: Iopamidol-370 76% 500 ML MDV (1 ML CHARGE) ONE (14:33)
[2024-10-21 15:34] LABS: #Basophils Less than 0.03 10x3/uL (0.0-0.2); %Basophils 0.2 % (0.0-1.0); %Eosinophils 1.8 % (0.0-10.0); %Lymphocytes 43.9 % (21.0-51.0); %Monocytes 7.5 % (0.0-10.0); %Neutrophils 46.3 % (42.0-75.0); Hematocrit 38.9 % (36.0-47.0); Hemoglobin 13.1 g/dL (12.0-16.0); Mean Corpuscular HGB CONC 33.7 g/dL (32.0-36.0); Mean Corpuscular Hemoglobin 30.5 pg (27.0-31.0); Mean Corpuscular Volume 90.5 fL (78.0-98.0); Mean Platelet Volume 11.5 fL (7.4-10.4); Platelet Count 255 10x3/uL (130-400); RBC Distribution Width 11.9 % (11.5-14.5)
[2024-10-21 15:44] LABS: Amphetamine Detected (NotDetected); Barbiturates Screen Not Detected (NotDetected); Benzodiazepine Screen Not Detected (NotDetected); Cocaine Metabolite Screen Not Detected (NotDetected); Methadone Not Detected (NotDetected); Methamphetamine Detected (NotDetected); Opiate Screen Not Detected (NotDetected); Oxycodone Screen Not Detected (NotDetected); Phencyclidine (PCP) Not Detected (NotDetected); THC/Cannabinoid Screen Not Detected (NotDetected); Tricyclic Screen Not Detected (NotDetected)
[2024-10-21 15:52] LABS: ALT (SGPT) 18 U/L (8-55); AST (SGOT) 17 U/L (5-34); Albumin 3.6 g/dL (3.5-5.0); Alkaline Phosphatase 99 U/L (40-110); Anion Gap 11 mmol/L (10-20); BUN (Urea Nitrogen) 13 mg/dL (9.8-20.1); Bilirubin, Total 0.6 mg/dL (0.2-1.2); Calc. Creatinine Clearance 0 mL/min (70-130); Calcium 9.1 mg/dL (7.8-10.44); Carbon Dioxide 27 mmol/L (22-29); Chloride 108 mmol/L (98-107); Estimated GFR 105; Globulin 2.9 g/dL (2.4-3.5); Glucose 99 mg/dL (70-105); Potassium 4.1 mmol/L (3.5-5.1); Protein, Total 6.5 g/dL (6.0-8.3); Sodium 142 mmol/L (136-145)
[2024-10-21 15:53] LABS: Acetaminophen Less than 10 mcg/mL (Less than 10); Alcohol Less than 10.0 mg/dL (Less than 10); Salicylate Less than 8.0 mg/dL (Less than 8.0)
[2024-10-21] MEDS ORDERED: Acetaminophen 500 MG TAB ONE (20:43)
[2024-10-21] MEDS ORDERED: traZODone HCl 50 MG TAB ONE (21:33)
== END 2024-10-22 01:41 ==
LOC: ERS 14:06
DX: R45.851 Suicidal ideations (principal); F17.290 Nicotine dependence, other tobacco product, uncomplicated
CPT/HCPCS: 70450; 70491; 80053; 80306; 80307; 84443; 85025; 93005; Q9967

== ENCOUNTER 2025-08-05 10:06 | Emergency (ER) | payer OTHER, SELFPAY ==
[2025-08-05] MEDS ORDERED: Ketorolac Tromethamine 30 MG (1 mL) VIAL ONE (11:11)
[2025-08-05 11:14] LABS: #Basophils Less than 0.03 10x3/uL (0.0-0.2); #Eosinophils 0.13 10x3/uL (0.0-0.7); #Monocytes 0.53 10x3/uL (0.11-0.59); #Neutrophils 3.64 10x3/uL (1.40-6.50); %Basophils 0.3 % (0.0-1.0); %Eosinophils 1.7 % (0.0-10.0); %Lymphocytes 44.1 % (21.0-51.0); %Monocytes 6.8 % (0.0-10.0); %Neutrophils 47.0 % (42.0-75.0); Hematocrit 42.3 % (36.0-47.0); Hemoglobin 14.0 g/dL (12.0-16.0); Mean Corpuscular Hemoglobin 30.3 pg (27.0-31.0); Mean Corpuscular Volume 91.6 fL (78.0-98.0); Platelet Count 251 10x3/uL (130-400); Red Blood Cell (RBC) Count 4.62 mill/uL (4.20-5.40); White Blood Cell (WBC) Count 7.74 10x3/uL (4.8-10.8)
[2025-08-05 11:30] LABS: ALT (SGPT) 14 U/L (Less than 34); AST (SGOT) 16 U/L (11-34); Albumin 4.3 g/dL (3.1-4.5); Alkaline Phosphatase 75 U/L (40-110); Anion Gap 14 mmol/L (10-20); BUN (Urea Nitrogen) 15 mg/dL (9.8-20.1); Bilirubin, Total 0.4 mg/dL (0.3-1.2); Calc. Creatinine Clearance 0 mL/min (70-130); Calcium 9.4 mg/dL (7.8-10.44); Carbon Dioxide 27 mmol/L (22-29); Chloride 105 mmol/L (98-107); Globulin 2.3 g/dL (2.4-3.5); Glucose 96 mg/dL (70-105); Potassium 3.6 mmol/L (3.5-5.1); Sodium 142 mmol/L (136-145)
[2025-08-05] MEDS ORDERED: Ondansetron PF 4 MG/2 ML Vial ONE (12:28)
== END 2025-08-05 15:04 | disposition home or self-care (01) ==
LOC: ERS 10:06
DX: R07.89 Other chest pain (principal); F17.210 Nicotine dependence, cigarettes, uncomplicated; F17.290 Nicotine dependence, other tobacco product, uncomplicated; Z79.899 Other long term (current) drug therapy
CPT/HCPCS: 71045; 76705; 80053; 84484; 85025; 93005; 94760; 96374; 96375; J1885; J2270

== ENCOUNTER 2025-09-10 22:43 | Emergency (ER) | payer SELFPAY | END 2025-09-11 00:10 | disposition home or self-care (01) | LOC: ERS 22:43 | DX: L72.3 Sebaceous cyst (principal); F17.210 Nicotine dependence, cigarettes, uncomplicated; F17.290 Nicotine dependence, other tobacco product, uncomplicated | CPT/HCPCS: 99282 ==